=== PATIENT | male | born 1995 | race Caucasian/White ===

== ENCOUNTER 2025-05-18 21:53 | Emergency (ER) | payer SELFPAY ==
[~2025-05-18] VITALS: Ht 182.9 cm; Wt 82.5 kg
[~2025-05-18 21:53] MED LIST: naloxone 2mg/2ml inj ONE
--- NOTE | 2025-05-18 22:06 | Physician Documentation ---
History of Present Illness ~ Chief Complaint: Overdose Stated Complaint: OVERDOSE Time Seen by MD: 22:00 HPI Unknown young man, presented by EMS with possible overdose, found down and unresponsive Here in the ED the patient is unresponsive and does not answer any questions. Per EMS, the patient was found down for an unknown period of time outside a store here in town. Initially police gave intranasal Narcan with no response. EMS gave IM Narcan, and then IV Narcan and the patient does start breathing. He reportedly had pinpoint pupils. Blood sugar was normal. No other history available. Medication Reconciliation Allergies: Coded Allergies: No Known Allergies (Unverified , 05/19/25) Review of Systems Unable to obtain complete ROS: altered mental status Physical Exam Vital Signs: Heart Rate: 110, Respiratory Rate: 14, BP: 146/93, Pulse Oximetry: 99, Weight: 82.500 Oxygen Flow Rate: 6.0 Physical Exam General: This is a thin young man, spontaneously breathing but otherwise unresponsive HEENT: Atraumatic, oropharynx appears dry Heart: Tachycardic, appears regular Lungs: Clear breath sounds bilateral with some coarse upper airway noises, oxygen saturations normal on room air, end-tidal CO2 in the 50s Chest wall: The patient has an abrasion over his sternum Abdomen: Soft, nondistended, no reaction to palpation Extremities: Warm and well-perfused, no obvious traumatic findings Neuro: The patient does withdrawal to pain, but otherwise does not respond to voice, does not speak. He does occasionally spontaneously open his eyes and take a deep breath with his mouth open. Progress Results/Orders Results/Orders Orders - ALESSANDRA DEVRIES MD Chest,Single View (05/18/25 22:02) Mixed Venous (05/18/25 ) Ct Head (05/18/25 22:30) Completed Orders - ALESSANDRA DEVRIES MD Cbc/Diff (05/18/25 22:02) CMP (05/18/25 22:02) Drug Screen, Urine (05/18/25 22:02) Ethanol (05/18/25 22:02) LA (05/18/25 22:02) Lipase (05/18/25 22:02) Chest,Single View (05/18/25 22:02) Ct Head (05/18/25 22:30) Normal Saline 1000ml (Sodium Chloride 10 (05/18/25 23:35) Lactic,2hr (05/19/25 00:01) Ondansetron Inj. (Zofran 4mg/2ml Vial) (05/19/25 00:40) Medications Received in ER Medications (Trade) Dose Ordered Sig/Sparkle Route PRN Reason Start Time Stop Time Status Last Admin Dose Admin (Zofran 4mg/2ml vial) 4 mg ONCE STAT IV 05/19/25 00:40 05/19/25 00:42 DC 05/19/25 00:50 4 MG Vital Signs 05/18/25 05/18/25 05/18/25 05/18/25 21:56 22:00 22:51 23:30 Pulse 110 100 100 Resp 14 11 17 12 B/P (MAP) 146/93 125/85 (98) 121/80 (94) Pulse Ox 99 94 96 O2 Flow Rate 6.0 0 0 05/19/25 05/19/25 05/19/25 00:00 01:00 01:27 Pulse 96 88 85 Resp 11 17 17 B/P (MAP) 116/75 (89) 124/86 (99) 124/86 Pulse Ox 95 97 100 O2 Flow Rate 0 0 Laboratory Tests Test 05/18/25 22:15 05/18/25 22:17 05/19/25 00:22 05/19/25 01:04 White Blood Count 17.6 H Red Blood Count 4.42 L Hemoglobin 14.2 Hematocrit 43.0 Mean Corpuscular Volume 97.3 Mean Corpuscular Hemoglobin 32.1 H Mean Corpuscular Hemoglobin Concent 33.0 Red Cell Distribution Width 13.4 Platelet Count 308 Mean Platelet Volume 7.1 L Neutrophils (%) (Auto) 85.9 H Lymphocytes (%) (Auto) 3.8 L Monocytes (%) (Auto) 9.8 Eosinophils (%) (Auto) 0.2 Basophils (%) (Auto) 0.3 Neutrophils # (Auto) 15.1 H Lymphocytes # (Auto) 0.7 L Monocytes # (Auto) 1.7 H Eosinophils # (Auto) 0.0 Basophils # (Auto) 0.0 CBC Comment Sodium Level 144 Potassium Level 3.7 Chloride Level 105 Carbon Dioxide Level 28.5 Anion Gap 11 Blood Urea Nitrogen 10 Creatinine 1.18 H Estimated GFR/1.73 m2 74 BUN/Creatinine Ratio 8.5 L Glucose Level 81 Lactic Acid Level 4.3 *H 2.5 H Calcium Level 7.9 L Total Bilirubin 0.1 Aspartate Amino Transf (AST/SGOT) 25 Alanine Aminotransferase (ALT/SGPT) 29 Alkaline Phosphatase 50 Total Protein 6.3 L Albumin 3.1 L Globulin 3.2 Albumin/Globulin Ratio 1.0 L Lipase 83 H Chemistry Comments Ethyl Alcohol Level 134 H Blood Gas Specimen Type Vbg Blood Gas Puncture Site Vbg - n/a O2 Saturation 63.0 *L Arterial Blood pH (Temp corrected) 7.218 *L Arterial Blood pCO2 (Temp correct) 60.0 H Arterial Blood pO2 (Temp corrected) 40.6 *L Arterial Blood PO2/FiO2 Ratio 1.83 Arterial Blood HCO3 23.6 Arterial Blood Base Excess -4.9 L Arterial Blood Oxyhemoglobin 62.2 L Arterial Blood Carboxyhemoglobin 1.1 Arterial Blood Methemoglobin 0.1 Arterial Blood Deoxyhemoglobin 36.6 H John Test Na Blood Gas Hemoglobin 15.5 Blood Gas Temperature 37.8 Blood Gas Modality ra FiO2 21.0 Blood Gas Critical Value Called To md Nabeel Urine Opiates Screen Negative Urine Methadone Screen Negative Urine Fentanyl Screen Positive H Urine Barbiturates Screen Negative Urine Phencyclidine Screen Negative Urine Amphetamines Screen Negative Urine Benzodiazepines Screen Negative Urine Cocaine Screen Positive Urine Cannabinoids Screen Drug Screen Comment Re-Evaluation Re-Evaluation : Re-Evaluation Time: 00:05 Re-Evaluation: Improved Progress The patient now awakens to stimulation, is able to tell me his name. He denies using any fentanyl today. He then falls back asleep EKG/XRAY/CT/US/VASC/MRI Chest X-Ray : Additional Comments I personally reviewed the x-ray, and it shows: No focal consolidation, pneumothorax, or widening of the mediastinum CT : Impression I personally reviewed the CT scan of the brain, and this shows no acute hemorrhage, mass, or edema Medical Decision Making Differential Dx:Considerations: Include: Alcohol abuse, Delirium, Drug Overdose-Accidental, Drug Overdose-Intentional, Encephalopathy Additional Comment Differential includes intracranial hemorrhage or other head injury, electrolyte derangement Assessment Unknown aged young male presenting found down unresponsive with possible overdose. He received multiple doses of Narcan and is now spontaneously breathing. On exam he has no evidence of significant trauma. Head CT was obtained that shows no acute hemorrhage. Chest x-ray unremarkable. Labs with a leukocytosis and lactic acidosis, likely secondary to hypoxia and downtime. He was given IV fluids. He was observed for a period of time after which his mental status slowly improved and he woke up and told me his name. After further observation, he was able to wake up, and ambulate. He requested to leave. He tells me that he did not think he took any fentanyl, only used cocaine. However his drug screen returns positive for opiates. He likely had an accidental fentanyl overdose. I did offer to prescribe Narcan, but he declined. He declined any further treatment and requested discharge. At this time, he has normal work of breathing, no evidence of a dangerous intoxication or overdose currently. He will be discharged with strict return precautions. Departure Time of Disposition: :07 Disposition: HOME / SELF CARE / HOMELESS Impression: Primary Impression: Poisoning by opiate or related narcotic Additional Impression: Alcoholic intoxication Condition: Improved Discharge Instructions: Accidental Drug Poisoning, Adult Referrals: NO PRIMARY CARE PROVIDER (PCP) Education Educated: Patient Educated regarding: diagnosis, treatment, need for follow up Critical Care Note Critical Care Note Critical Care Note The very real possibility of a deterioration of this patient's condition required the highest level of my preparedness for sudden, emergent intervention. I provided critical care services, which included medication orders, frequent reevaluations of the patient's condition and response to treatment, ordering and reviewing test results, and discussing the case with various consultants. Excludes time spent performing separately billable procedures. The critical care time associated with the care of the patient was 45 minutes in the management of altered mental status and respiratory failure Signature Scribe Signature: simon Attestation: ALESSANDRA Murray MD May 18, 2025 22:06
[2025-05-18 22:22] LABS: ABG BASE EXCESS -4.9 mmol/L (-2.0-3.0); ABG HCO3 23.6 mmol/L (21.0-28.0); ABG OXYGEN SATURATION 63.0 % (94.0-98.0); ABG PCO2 (T) 60.0 mmHg (35.0-48.0); ABG PH (T) 7.218 (7.350-7.450); ABG PO2 (T) 40.6 mmHg (83.0-108.0); FCOHb 1.1 % (0.5-1.5); FHHb 36.6 % (0.0-5.0); FIO2 21.0 mmHg/%; FMetHb 0.1 % (0.0-1.5); FO2Hb 62.2 % (94.0-98.0); MODE ra; PATIENT TEMPERATURE 37.8; TOTAL HEMOGLOBIN 15.5 G/dl (13.5-17.5)
[2025-05-18 22:30] LABS: MEAN PLATELET VOLUME 7.1 FL (7.4-10.4); RED CELL DISTRIBUTION WIDTH 13.4 % (11.5-14.5)
[2025-05-18 22:43] LABS: CREATININE 1.18 MG/DL (0.60-1.10); ETHANOL 134 MG/DL (<10); TOTAL CARBON DIOXIDE 28.5 MMOL/L (24-32); eCRCL 102 ML/MIN; eGFR 74 ML/MIN
--- NOTE | 2025-05-18 23:20 | RADIOLOGY REPORT ---
CLINICAL HISTORY: FOUND DOWN UNRESPONSIVE TECHNIQUE: Helical imaging carried out from skull base to vertex without intravenous contrast. This e xam was performed according to our departmental dose optimization program. Up-to-date CT equipment an d radiation dose reduction techniques are utilized as appropriate. CTDIVol: 54.58 mGy DLP: 1029.98 mGy-cm WID: COMPARISON: None FINDINGS: The ventricles and subarachnoid spaces are normal in size and configuration. There is no midline jorge ft or mass effect. The willis white matter interfaces are maintained. The basal cisterns are patent. Th ere is no evidence of acute intracranial hemorrhage or extra-axial fluid collection. The mastoid air cells and visualized paranasal sinuses are well-aerated aside from mild mucosal thickening of the lef t maxillary sinus. There is tubing in the right nasal cavity IMPRESSION: No acute intracranial abnormality.
--- NOTE | 2025-05-18 23:45 | RADIOLOGY REPORT ---
EXAM: DI CHEST,SINGLE VIEW CLINICAL HISTORY: Found down, not breathing, altered mental status TECHNIQUE: Single AP view of the chest WID: COMPARISON: None FINDINGS: Lines and tubes: None Chest: The heart size and pulmonary vasculature is within normal limits. No pleural effusion, pneumothorax, or consolidation. The osseous structures are grossly intact. IMPRESSION: No acute cardiopulmonary abnormality.
[2025-05-19] MEDS: ondansetron/PF 4mg/2ml inj IV STA (00:50)
[2025-05-19] MEDS: normal saline 1000ml 1,000 ML IV ONE (00:51)
[2025-05-19 01:27] VITALS: BP 124/86; PULSE 85; RESP 17; O2SAT 100
[2025-05-19 01:31] LABS: URINE AMPHETAMINE SCREEN NEGATIVE (Neg); URINE BARBITUATE SCREEN NEGATIVE (Neg); URINE BENZODIAZEPINES SCREEN NEGATIVE (Neg); URINE COCAINE SCREEN POSITIVE (Neg); URINE METHADONE SCREEN NEGATIVE (Neg); URINE OPIATE SCREEN NEGATIVE (Neg); URINE PHENCYCLIDINE SCREEN NEGATIVE (Neg)
== END 2025-05-19 01:33 | disposition home or self-care (01) ==
LOC: EDBD 21:54 → ER 21:54
DX: F10.129 Alcohol abuse with intoxication, unspecified (principal); Y90.9 Presence of alcohol in blood, level not specified
CPT/HCPCS: 36415; 36600; 70450; 71045; 80053; 80305; 80320; 82803; 83605; 83690; 85018; 85025; 96361; 96374; 99291; J2310; J2405; J7030; A4620; C1758